=== PATIENT | female | born 1960 | race Caucasian/White ===

== ENCOUNTER 2016-07-27 10:04 | Day surgery (SDC) | payer OTHER ==
[2016-07-27] VITALS (9 sets, daily range): BP systolic 110–141; BP diastolic 65–90; PULSE 60–89; RESP 14–19; O2SAT 93–97
[~2016-07-27] VITALS: Ht 213.4 cm; Wt 90.0 kg
--- NOTE | 2016-07-27 07:08 | PCM.HPANE ---
Patient Data Surgeon Admitting Provider: Attending Provider:Anil Banks MD Primary Care Physician:Lo Leach PA-C Other Provider:[facility] Reason for Visit Back Lipomas Ht/WT & BMI Height (Feet): 5 Height (Inches): 7 Weight (Kilograms): 90.72 Body Mass Index 31.00 Allergies Coded Allergies: pantoprazole (Verified Allergy, Unknown, 05/21/15) porcine derived comment on med list Past Anesthesia History Anesthesia History: Positive for:: Abnormal Airway, Difficult Intubation, Fam Anesthesia Reaction (only maternal grandmother- no other family members), Fam Malignant Hypertherm (Maternal grandmother), Malignant Hyperthermia, Denies:: Anesthesia Reactions (not personally for patient) Diabetes History Hx Diabetes?: No (preop Hgb A1c 5.7- 06/30/16) MRSA MRSA: No Medications Blood Thinner: Aspirin Reported Medications Valacyclovir HCl (Valtrex)1,000 Mg Tablet1,000 Mg PO DAILY PRN outbreak 30 Days for 5 day course 07/25/16 Sertraline HCl (Sertraline)100 Mg [id number] Mg PO DAILY 30 Days Ref 0 07/25/16 [papaya enzyme chew] No Conflict Check1 Tab DAILY 07/25/16 Multivitamin (Multi Vitamin Daily)1 Each Tablet1 Each PO DAILY 30 Days Ref 0 07/25/16 Xenia-3 Fatty Acids/Fish Oil (Fish Oil 1,000 mg Softgel)1 Each Capsule1 Each PO DAILY 07/25/16 Amitriptyline 25 Mg Tab25 Mg PO HS Ref 0 07/25/16 Discontinued Reported Medications [valtrex] No Conflict Check1 Tab DAILY PRN outbreak for 5 day cycle 05/21/15 Sertraline HCl (Sertraline)100 Mg [id number] Mg PO DAILY 30 Days Ref 0 05/21/15 Cyclobenzaprine 10 Mg Fattmx52 Mg PO TID PRN Spasm 05/21/15 Aspirin 81 Mg Ftkrjc96 Mg PO DAILY Ref 0 05/21/15 Amitriptyline 25 Mg Tab75 Mg PO HS Ref 0 05/21/15 History History of ENT Problems?: No HEENT History: Denies:: Abnormal Airway Cataracts Difficult Intubation Dysphagia Glaucoma Hearing Problem Sinus Problem TMJ Denture Type: None Teeth Condition: Within Normal Limits Hx of Heart Problems?: No Cardiovascular History: Denies:: Congestive Heart Failure Hypertension Hx of Respiratory Problem?: Yes Respiratory History: Positive for:: Pneumonia (remote hx of ) Denies:: Asthma (past hx of) COPD Chest Surgery Dyspnea Emphysema Hemoptysis Oxygen Administration Tuberculosis Use of C-PAP Machine Hx Neurologic Problems?: No Neurological History: Denies:: CVA Multiple Sclerosis Parkinson's Disease Seizures Hx of GI Problems?: Yes Hx of Problems?: Yes Genitourinary History: Positive for:: Kidney Stones (hx of lithotripsy) Denies:: HX of Hemodialysis Urinary Tract Infection (past hx of, not chronic or current) HX of Peritoneal Dialysis: No Female Hx: Positive for:: Problems with Breasts? (hx of breast reduction) Denies:: Currently Endometriosis Pelvic Inflammatory Skin History: Positive for:: History Skin Disorders? (back lipomas x 2- current admission problem) Hx Musculoskeletal Problems?: Yes Musculoskeletal History: Positive for:: Back Injury (low back pain) Denies:: Joint Replacement Musculoskeletal Trauma Hx of Psycho/Social Problems?: Yes Psycho Social History: Positive for:: Anxiety Hx Depression Denies:: Bipolar Disorder Suicide Attempt Hx Surgeries?: Yes (tonsil, kidney stone lithotripsy, laparoscopy, breast reduction) Hx Any Other Health Problems?: Yes Other History: Positive for:: Hospitalization Denies:: Cancer Endocrine Disease Thyroid Disease History Blood Transfusions: Denies:: Blood Transfuse Reaction Blood Transfusions Hx Diabetes: No (preop Hgb A1c 5.7- 06/30/16) Hx Alcohol Use: NoHx Substance Use: No Smoking Status: Former Smoker Have You Smoked inLast 12 mo: No Stop/Bang S-Snoring: Do You Snore Loudly: Yes T-Tired: feel tired, fatigued: Yes O-Obsered: Observed not breath: No P-Blood Pressure: treated: No B- Body Mass Index > 35 kg/m2: No A- Age over 50: Yes N- Neck Large Circumference: No G- Gender Male: No JOSEPHINE Total Score: 3 Risk Assessment Category Category 1A: Patient has history of documented sleep apnea, and HAS NOT received any narcotic, sedative or anesthesia administration during this stay. Category 1B: Patient has history of documented sleep apnea, and HAS received any narcotic , sedative or anesthesia administration during this stay Category 2: Patient has SUSPECTED Obstructive Sleep Apnea, and HAS received any narcotic , sedative or anesthesia administration during this stay. Category 3: Patient has SUSPECTED Obstructive Sleep Apnea and HAS NOT received narcotic, sedative or anesthesia administration during this stay. Category 4: Outpatient in Procedural Areas with known sleep apnea or who screen positive for High Risk via the STOP/BANG questionnaire. Exam Exam General Appearance: Alert, Oriented X3, Cooperative, No Acute Distress HEENT/AIRWAY: MP 2, Neck Movement (thick), Mouth Opening (wnl) Lungs: Clear to Auscultation Heart: Exam Unremarkable Plan Impression Patient chart reviewed, patient interviewed and anesthestic plan with risks, benefits, and alternatives discussed, and informed consent obtained. ASA Physical Status: ASA2 Mod Systemic Disease Bene/Risks/Altern/Consents: Yes HP Complete Prior to Induction: Yes Other Vaporizers off machine, cart in ROOM, New circuit, new Soda Sorb, MH filters in place. Will use nontriggering anesthetics Sal Lin MD July 27, 2016 07:08
[~2016-07-27 10:04] MED LIST: AMT25T PO; Lactated Ringer's 1,000 ML IV SCH; MULT-1018 PO; OMEG1CAP15 PO; PAPAYA ENZYME; SERT100T9 PO; VALA1000 PO
[2016-07-27] MEDS ORDERED: Ondansetron 2 mg/mL 2 mL Inj ONE (10:05)
[2016-07-27] MEDS ORDERED: Propofol 10,000 mCg/mL 20 mL Inj ONE (10:05)
[2016-07-27] MEDS ORDERED: Glycopyrrolate 0.2 MG/ML 1mL Inj ONE (10:05)
[2016-07-27] MEDS ORDERED: Neostigmine 1 mg/mL 10 mL Inj ONE (10:05)
[2016-07-27] MEDS ORDERED: fentaNYL-PF 50 mCg/mL 2 mL Inj ONE (10:05)
[2016-07-27] MEDS ORDERED: Rocuronium 10 mg/mL 5 mL Inj ONE (10:05)
[2016-07-27] MEDS ORDERED: Lactated Ringer's 1,000 ML IV ONE ×2 (10:43→13:02)
[2016-07-27] MEDS ORDERED: LORazepam 1 mg Tablet PO PRN (11:05)
[2016-07-27] MEDS: fentaNYL-PF 50 mCg/mL 2 mL Inj IVPUSH PRN ×2 (11:10→11:17)
[2016-07-27] MEDS ORDERED: Bupivacaine-MPF 0.25%/EPI 30 mL Inj INFILTRATE ONE (12:21)
[2016-07-27] MEDS ORDERED: Lactated Ringer's 1,000 ML IV SCH (12:41)
[2016-07-27] MEDS ORDERED: Lactated Ringer's 500 ML IV PRN (12:41)
[2016-07-27] MEDS ORDERED: Ondansetron 2 mg/mL 2 mL Inj IVPUSH PRN (12:45)
[2016-07-27] MEDS ORDERED: fentaNYL-PF 50 mCg/mL 2 mL Inj IVPUSH PRN (12:45)
[2016-07-27] MEDS ORDERED: Dexamethasone 4 mg/mL Inj IVPUSH PRN (12:45)
[2016-07-27] MEDS ORDERED: EPHEDrine Sulfate 50 mg/mL Inj IVPUSH PRN (12:45)
[2016-07-27] MEDS ORDERED: HYDROmorphone 1 mg/mL Inj IVPUSH PRN (12:45)
[2016-07-27] MEDS ORDERED: Atropine 0.4 mg/mL Inj IVPUSH PRN (12:45)
[2016-07-27] MEDS ORDERED: Phenylephrine 10,000 mCg/mL Inj IVPUSH PRN (12:45)
[2016-07-27] MEDS ORDERED: hydrALAZINE 20 mg/mL Inj IVPUSH PRN (12:45)
[2016-07-27] MEDS ORDERED: Labetalol 5 mg/mL 4 mL Inj IV PRN (12:45)
[2016-07-27] MEDS ORDERED: oxyCODONE-Acetamin 5-325 mg Tablet PO PRN (13:20)
--- NOTE | 2016-07-27 13:39 | PCM.ANEP1 ---
Post Anesthesia Phase 1 PACU Phase 1 Assessment Vital Signs Vital Signs Date Time Temp Pulse Resp B/P Pulse Ox O2 Delivery O2 Flow Rate FiO2 07/27/16 13:30 36.6 89 17 141/83 93 Room Air 07/27/16 13:30 36.4 89 15 114/81 95 Room Air 07/27/16 10:32 36.6 66 14 124/90 97 Room Air Anesthetic Administered: GA Level of Alertness: Awake, talking KIDD's with Equal Strength: Yes Pain: No Nausea or Vomiting: No Oxygen Delivery: Room Air Lungs: Normal Air Movement Complications: No Follow up Care: No Sal Lin MD July 27, 2016 13:39
--- NOTE | 2016-07-27 15:15 | OP ---
[address] [address] OPERATIVE REPORT PATIENT: CASSY KIRK : 1960 MR#: [id number] ADMIT: 07/27/2016 JOB ID: [id number] DATE OF SURGERY: 07/27/2016 ANESTHESIA: General. PREOPERATIVE DIAGNOSIS(ES): Back lipoma x2. POSTOPERATIVE DIAGNOSIS(ES): Back lipoma x2. OPERATIVE PROCEDURE: Excision of back lipoma x2. SURGEON: Dr. Anil Banks. ONLINE BANKING SPECIALIST: Hiro Dumont PA-C (the assistant sales manager was required for the safe and timely completion of the case). COMPLICATIONS: None. ESTIMATED BLOOD LOSS: Less than 5 mL. CONDITION: Satisfactory. SPECIMENS: A 3 x 1 cm lipoma was removed from the left upper back and a 9 x 7 x 1 cm lipoma was removed from the left lower back. The patient did not desire to have these sent for pathologic examination if they looked clearly benign which they did. INDICATION/SIGNIFICANT HISTORY: The patient is a 55-year-old female whose had two back lumps for a number of years. They have been slowly growing and becoming increasingly symptomatic. She was referred to me and I recommended excision in the operating room, given the location and size. OPERATIVE TECHNIQUE: The patient was taken to the operating room and general anesthesia was administered. She was then placed in a prone position. The back was prepped and draped in a standard surgical fashion and a procedural pause was performed. Local anesthetic was injected, followed by creation of a horizontal incision over the upper lipoma. This was easily dissected free as it was just subcutaneous. This measured 3 x 1 cm. An incision was made over the palpable lump in the left lower back. This lipoma was subfascial and extended down to the sacrum. This was circumferentially dissected free and removed. Hemostasis was achieved using cautery. Both incisions were then closed using 3-0 Vicryl deep dermals followed by a running 4-0 Monocryl. Dermabond was applied. The entire procedure was well tolerated without complication.
--- NOTE | 2016-08-07 17:14 | PCM.ANEPRE ---
Anesthesia Pre-Op Review Reason for Review: family hx MH phoned to lauren- no review requested Additional Comments PATIENT called Dr Banks's Office to complain of sore throat. She asked to speak to her anesthesiologist and Dr Banks's office communicated with me that she is in [place]. I called the number given to me by [place] Miriam which also matches the face sheet: [phone]. After several rings it went to voicemail with no name given but a female voice asking to leave a message. I left a message identiffying myself and that I would call back later this evening and again tomorrow. Sal Lin MD August 07, 2016 17:14
== END 2016-07-27 23:59 | disposition home or self-care (01) ==
LOC: SAS 10:04
PROVIDERS: ATTEND General Practice
DX: D17.1 Benign lipomatous neoplasm of skin and subcutaneous tissue of trunk (principal); I10 Essential (primary) hypertension; E11.9 Type 2 diabetes mellitus without complications; F41.8 Other specified anxiety disorders; E78.1 Pure hyperglyceridemia; Z79.82 Long term (current) use of aspirin; Z87.442 Personal history of urinary calculi; Z87.891 Personal history of nicotine dependence
CPT/HCPCS: 11403; 11406; J2250; J2405; J2710; J3010; J7120